=== PATIENT | female | born 1970 | race Caucasian/White ===

== ENCOUNTER 2020-04-05 01:39 | Emergency (ER) | payer MEDICAID, OTHER ==
[~2020-04-05] VITALS: Ht 165.1 cm; Wt 77.3 kg
[2020-04-05] MEDS ORDERED: ondansetron 4mg rapidly disintigrating tab PO ONE (02:00)
[2020-04-05] MEDS ORDERED: acetaminophen 325mg tablet PO ONE (02:00)
[2020-04-05] MEDS ORDERED: ketorolac trometh inj. 60 MG/2 ML VIAL IM ONE (02:00)
[2020-04-05 03:30] LABS: CLARITY,URINE CLEAR (Clear); COLOR,URINE YELLOW (Yellow); GLUCOSE, URINE >=1000 mg/dl (Neg); KETONES,URINE 40 mg/dl (Neg); LEUKOCYTE ESTERASE ,URINE NEGATIVE (Neg); NITRITES, URINE NEGATIVE (Neg); OCCULT BLOOD,URINE NEGATIVE (Neg); PROTEIN,URINE TRACE mg/dl (Neg); UROBILINOGEN,URINE 0.2 E.U/dL (0.2-1.0)
[2020-04-05 03:39] LABS: UA COLLECTION TYPE CLN CATCH MIDSTREAM
[2020-04-05 03:40] LABS: BACTERIA,URINE NONE SEEN /HPF (Neg); RBC,URINE NONE SEEN /HPF (0-2); SQUAMOUS EPITHELIAL CELL,UR FEW /LPF (FEW); WBC,URINE NONE SEEN /HPF (0-4)
[2020-04-05] MEDS ORDERED: ONDA8TAB6 PO (03:47)
[2020-04-05] MEDS ORDERED: HYDR-3965 PO (03:47)
[2020-04-05 04:04] VITALS: BP 142/79
== END 2020-04-05 04:05 | disposition home or self-care (01) ==
LOC: ER 01:40
DX: R07.81 Pleurodynia (principal); R11.2 Nausea with vomiting, unspecified; M54.9 Dorsalgia, unspecified; Z87.442 Personal history of urinary calculi; Z88.5 Allergy status to narcotic agent; Z79.899 Other long term (current) drug therapy
CPT/HCPCS: 71045; 81001; 96372; 99284; J1885

== ENCOUNTER 2020-04-10 18:37 | Inpatient (IN) | payer MEDICAID, OTHER ==
[~2020-04-10] VITALS: Ht 165.1 cm; Wt 76.0 kg
[~2020-04-10 18:37] MED LIST: HYDR-3965 PO; ONDA8TAB6 PO
[2020-04-10] MEDS ORDERED: morphine 4 MG/ML inj SYRINge IV ONE (19:00)
[2020-04-10] MEDS ORDERED: ondansetron/PF 4mg/2ml inj IV ONE (19:00)
[2020-04-10] MEDS ORDERED: iohexol 300mg/ml 100ml inj. ONE (19:04)
[2020-04-10] MEDS ORDERED: fentaNYL/PF 50MCG/1 ML 2ML syringe IV ONE ×2 (19:05→22:10)
[2020-04-10] MEDS ORDERED: normal saline 1000ml 1,000 ML IV ONE (19:35)
[2020-04-10] MEDS ORDERED: HYDROcodone/acetaminophen 10/325mg tab PO ONE (22:10)
[2020-04-10] MEDS ORDERED: metoclopramide 5 mg/ml inj IV ONE (22:10)
[2020-04-10] MEDS ORDERED: apixaban 5mg tablet PO ONE (22:10)
[2020-04-10] MEDS ORDERED: NO HOME MEDS (22:28)
[2020-04-10] MEDS ORDERED: heparin 10,000 units/1 ML INJ IV ONE (22:30)
[2020-04-10 23:21] LABS: ALANINE AMINOTRANSFERASE 88 U/L (12-78); ALBUMIN/GLOBULIN RATIO 0.4 (1.1-1.5); ALKALINE PHOSPHATASE 299 IU/L (46-116); ANION GAP 16 (8-16); ASPARTATE AMINO TRANSFERASE 49 U/L (10-37); BILIRUBIN,TOTAL 0.5 MG/DL (0.1-1.0); BLOOD UREA NITROGEN 7 MG/DL (7-18); BUN/CREATININE RATIO 12.5 (6.6-38.0); CALCIUM 8.1 MG/DL (8.5-10.1); CHLORIDE 100 MMOL/L (99-107); CREATININE 0.56 MG/DL (0.40-0.90); GLUCOSE 257 MG/DL (70-104); POTASSIUM 3.3 MMOL/L (3.5-5.1); SODIUM 135 MMOL/L (135-145); TOTAL PROTEIN 6.8 G/DL (6.4-8.2); eGFR > 90 ML/MIN
[2020-04-10] MEDS: normal saline 1000ml 1,000 ML IV SCH (23:38)
[2020-04-10] MEDS ORDERED: mag hydrox/Alum hydrox/simeth 30ml oral suspension PO PRN (23:40)
[2020-04-10] MEDS ORDERED: magnesium hydroxide 30ml (MOM) UD suspension PO PRN (23:40)
[2020-04-10] MEDS ORDERED: acetaminophen 325mg tablet PO PRN (23:40)
[2020-04-10] MEDS ORDERED: potassium CL 10mEq/100ml bag 100 ML IV PRN ×2 (23:40)
[2020-04-10 23:43] LABS: MEAN CORPUSCULAR VOLUME 75.9 FL (78-98)
[2020-04-10 23:45] LABS: BASOPHILS # (AUTO) 0.1 X10'3 (0-0.2); BASOPHILS % (AUTO) 0.7 % (0-1); EOSINOPHILS # (AUTO) 0.1 X10'3 (0-0.9); EOSINOPHILS % (AUTO) 0.5 % (0-6); HEMOGLOBIN 11.1 g/dl (12.0-16.0); LYMPHOCYTES # (AUTO) 1.7 X10'3 (1.1-4.8); LYMPHOCYTES % (AUTO) 8.6 % (21-51); MEAN CORPUSCULAR HEMOGLOBIN 23.5 PG (27.0-31.0); MEAN CORPUSCULAR HGB CONC 30.9 g/dL (33.0-36.5); MEAN PLATELET VOLUME 7.6 FL (7.4-10.4); MONOCYTES # (AUTO) 2.1 X10'3 (0-0.9); MONOCYTES % (AUTO) 10.9 % (2-12); NEUTROPHILS # (AUTO) 15.4 X10'3 (1.8-7.7); NEUTROPHILS % (AUTO) 79.3 % (42-75); PLATELET COUNT 653 X10'3 (140-440); RED BLOOD COUNT 4.75 X10'6 (4.20-5.60); RED CELL DISTRIBUTION WIDTH 17.2 % (11.5-14.5); WHITE BLOOD COUNT 19.4 X10'3 (4.5-11.0)
[2020-04-10] MEDS ORDERED: naloxone 0.4 mg/ml inj IV PRN (23:45)
[2020-04-10] MEDS ORDERED: CADD PCA waste documentation MC PRN (23:45)
[2020-04-11] MEDS: heparin 25,000 UNIT/250ml bag 250 ML IV SCH ×5 (00:27→22:38)
[2020-04-11] MEDS: HYDROmorphone/NS 1 mg/ml CADD 50 ML IV SCH ×7 (00:51→13:00)
[2020-04-11 01:00] VITALS: BP 141/84
[2020-04-11 02:15] LABS: CLARITY,URINE CLEAR (Clear); COLOR,URINE YELLOW (Yellow); GLUCOSE, URINE 500 mg/dl (Neg); KETONES,URINE >=80 mg/dl (Neg); LEUKOCYTE ESTERASE ,URINE NEGATIVE (Neg); NITRITES, URINE NEGATIVE (Neg); OCCULT BLOOD,URINE MODERATE (Neg); PH,URINE 6.5 (4.8-8.0); PROTEIN,URINE TRACE mg/dl (Neg)
[2020-04-11 02:23] LABS: UA COLLECTION TYPE CLN CATCH MIDSTREAM
[2020-04-11 02:46] LABS: BACTERIA,URINE NONE SEEN /HPF (Neg); MUCUS STRANDS NONE SEEN /LPF (Neg); SQUAMOUS EPITHELIAL CELL,UR FEW /LPF (FEW); WBC,URINE 0-4 /HPF (0-4)
[2020-04-11 04:29] LABS: NUCLEATED RED BLOOD CELLS 1 /100WBC (0-0); PLATELET ESTIMATE INCREASED; TOTAL CELLS COUNTED 100
[2020-04-11 04:30] LABS: ANISOCYTOSIS 1+; LARGE PLATELETS FEW; MICROCYTOSIS 1+
[2020-04-11 06:41] LABS: BASOPHILS # (AUTO) 0.1 X10'3 (0-0.2); BASOPHILS % (AUTO) 0.5 % (0-1); EOSINOPHILS # (AUTO) 0.1 X10'3 (0-0.9); EOSINOPHILS % (AUTO) 0.4 % (0-6); HEMATOCRIT 35.5 % (35.0-45.0); HEMOGLOBIN 11.1 g/dl (12.0-16.0); LYMPHOCYTES # (AUTO) 1.6 X10'3 (1.1-4.8); LYMPHOCYTES % (AUTO) 7.7 % (21-51); MEAN CORPUSCULAR HGB CONC 31.3 g/dL (33.0-36.5); MEAN CORPUSCULAR VOLUME 76.6 FL (78-98); MEAN PLATELET VOLUME 7.5 FL (7.4-10.4); MONOCYTES # (AUTO) 2.2 X10'3 (0-0.9); MONOCYTES % (AUTO) 10.3 % (2-12); NEUTROPHILS # (AUTO) 17.3 X10'3 (1.8-7.7); NEUTROPHILS % (AUTO) 81.1 % (42-75); PLATELET COUNT 677 X10'3 (140-440); RED BLOOD COUNT 4.64 X10'6 (4.20-5.60); RED CELL DISTRIBUTION WIDTH 17.5 % (11.5-14.5); WHITE BLOOD COUNT 21.3 X10'3 (4.5-11.0)
[2020-04-11 06:54] LABS: ALANINE AMINOTRANSFERASE 84 U/L (12-78); ALBUMIN 1.7 G/DL (3.4-5.0); ALBUMIN/GLOBULIN RATIO 0.3 (1.1-1.5); ALKALINE PHOSPHATASE 311 IU/L (46-116); ANION GAP 15 (8-16); ASPARTATE AMINO TRANSFERASE 36 U/L (10-37); BILIRUBIN,TOTAL 0.5 MG/DL (0.1-1.0); BLOOD UREA NITROGEN 7 MG/DL (7-18); BUN/CREATININE RATIO 11.9 (6.6-38.0); CALCIUM 8.6 MG/DL (8.5-10.1); CHLORIDE 100 MMOL/L (99-107); CREATININE 0.59 MG/DL (0.40-0.90); GLUCOSE 276 MG/DL (70-104); POTASSIUM 3.2 MMOL/L (3.5-5.1); SODIUM 133 MMOL/L (135-145); TOTAL CARBON DIOXIDE 17.7 MMOL/L (24-32); TOTAL PROTEIN 7.1 G/DL (6.4-8.2); eGFR > 90 ML/MIN
[2020-04-11 07:00] VITALS: BP 129/73
[2020-04-11] MEDS: heparin 10,000 units/1 ML INJ IV PRN ×3 (07:22→22:35)
[2020-04-11] MEDS: potassium Cl 20 mEq SR tablet PO PRN ×3 (07:28→22:38)
[2020-04-11] MEDS: K and/or MAG REPLACEMENT MC SCH ×2 (07:30→20:00)
[2020-04-11 11:34] VITALS: BP 144/83
[2020-04-11 12:15] VITALS: BP 143/75
[2020-04-11] MEDS ORDERED: haemoph B poly conj-tet tox/PF 10mcg/0.5ml vial IMVAC ONE (12:15)
[2020-04-11] MEDS ORDERED: pneumococcal 23-VAL P-sac vacc 25 mcg/0.5ml vial IMVAC ONE (12:15)
[2020-04-11] MEDS ORDERED: mening vac A,C,Y,W-135 dip/PF 4 mcg/0.5 ml vaccine IMVAC ONE (12:15)
[2020-04-11] MEDS: ondansetron/PF 4mg/2ml inj IV PRN (14:54)
[2020-04-11 15:14] VITALS: BP 133/79
[2020-04-11] MEDS: HYDROcodone/acetaminophen 10/325mg tab PO PRN ×2 (15:36→20:48)
[2020-04-11 15:37] LABS: HEMATOCRIT 34.5 % (35.0-45.0); HEMOGLOBIN 10.7 g/dl (12.0-16.0); MEAN CORPUSCULAR HEMOGLOBIN 23.3 PG (27.0-31.0); MEAN CORPUSCULAR HGB CONC 30.9 g/dL (33.0-36.5); MEAN CORPUSCULAR VOLUME 75.4 FL (78-98); MEAN PLATELET VOLUME 7.3 FL (7.4-10.4); PLATELET COUNT 720 X10'3 (140-440); RED BLOOD COUNT 4.58 X10'6 (4.20-5.60); WHITE BLOOD COUNT 20.8 X10'3 (4.5-11.0)
--- NOTE | 2020-04-11 16:23 | NUR ---
HEP DRIP STOPPED FOR IR EMBOLIZATION
--- NOTE | 2020-04-11 16:30 | NUR ---
PTT 35. PER PROTOCOL 6000 BOLUS WAS TO BE GIVEN. PT WAS TO GO TO IR FOR EMBOLIZATION. I DISCUSSED WITH RADIOLOGY SCHEDULER ESCOBAR WHETHER GIVING A BOLUS WOULD BE APPROPRIATE. WE WERE UNSURE OF TIME OF PROCEDURE, SHE MADE MULTIPLE ATTEMPTS TO CONTACT IR WITH NO SUCCESS. PER RADIOLOGY SCHEDULER, FOLLOWING THE PROTOCOL WAS THE APPROPRIATE ACTION PT HAS A THORACIC THROMBUS. PROTOCOL WAS FOLLOWED.
--- NOTE | 2020-04-11 16:56 | NUR ---
HEP DRIP RESTARTED. PROCEDURE DELAYED UNTIL AM D/T HEP BOLUS.
[2020-04-11 18:00] VITALS: BP 146/74
--- NOTE | 2020-04-11 18:53 | NUR ---
Problems reprioritized. Patient report given, questions answered & plan of care reviewed with PRUDENCE RN.
--- NOTE | 2020-04-11 23:42 | NUR ---
Lab results for PTT was 43 and the patient was given 3000 unit bolus of Heparin and the rate for Heparin drip was increased from 19,000units/hr to 2,100units per hour. Per Dr Bey order, no Heparin bolus after 0400 0n 04/12/20 and to stop the infusion at 0700 on 04/12/20. Patient going in for a procedure at 10 am.
[2020-04-12] VITALS (19 sets, daily range): BP systolic 127–180; BP diastolic 68–88
[2020-04-12] MEDS: HYDROcodone/acetaminophen 10/325mg tab PO PRN ×2 (01:06→16:18)
--- NOTE | 2020-04-12 03:00 | NUR ---
PATIENT STARTED COMPLAINING OF PAIN IN THE ABDOMEN AND UPON ASSESSMENT, THE VITAL SIGNS WERE TEMPERATURE 99.4, HR 134, O2 91, RR 24 AND BP 180/85. O2 ADMINISTERED AT 2L. MD NOTIFIED AND CAME TO ASSESS THE PATIENT. PATIENT SENT FOR CT SCAN AND THE DOCTOR IS EVALUATING THE RESULTS. PER DR VASQUEZ'S ORDER, HEPARIN DRIP STOPPED. PATIENT IS BACK IN THE ROOM AND ZOFRAN ADMINISTERED REQUESTED BY PATIENT.
[2020-04-12] MEDS ORDERED: iohexol 300mg/ml 100ml inj. ONE ×2 (03:15→10:10)
[2020-04-12] MEDS: ondansetron/PF 4mg/2ml inj IV PRN ×3 (03:25→21:24)
[2020-04-12] MEDS: normal saline 1000ml 1,000 ML IV SCH ×4 (04:07→23:40)
[2020-04-12] MEDS: HYDROmorphone inj. 0.5 MG/0.5 ML DISP.SYRIN IV PRN ×3 (04:23→13:32)
[2020-04-12 04:42] LABS: EOSINOPHILS # (AUTO) 0.1 X10'3 (0-0.9); LYMPHOCYTES # (AUTO) 0.7 X10'3 (1.1-4.8); LYMPHOCYTES % (AUTO) 4.5 % (21-51); MEAN PLATELET VOLUME 7.7 FL (7.4-10.4); MONOCYTES # (AUTO) 1.1 X10'3 (0-0.9)
[2020-04-12 04:44] LABS: BASOPHILS % (AUTO) 0.3 % (0-1); EOSINOPHILS % (AUTO) 0.6 % (0-6); HEMATOCRIT 35.3 % (35.0-45.0); MEAN CORPUSCULAR HEMOGLOBIN 23.4 PG (27.0-31.0); MEAN CORPUSCULAR HGB CONC 31.2 g/dL (33.0-36.5); MEAN CORPUSCULAR VOLUME 75.1 FL (78-98); MONOCYTES % (AUTO) 6.7 % (2-12); NEUTROPHILS % (AUTO) 87.9 % (42-75); PLATELET COUNT 642 X10'3 (140-440); RED CELL DISTRIBUTION WIDTH 17.4 % (11.5-14.5); WHITE BLOOD COUNT 15.9 X10'3 (4.5-11.0)
[2020-04-12 04:47] LABS: ALANINE AMINOTRANSFERASE 72 U/L (12-78); ALBUMIN 1.9 G/DL (3.4-5.0); ALBUMIN/GLOBULIN RATIO 0.4 (1.1-1.5); ALKALINE PHOSPHATASE 287 IU/L (46-116); ANION GAP 17 (8-16); ASPARTATE AMINO TRANSFERASE 32 U/L (10-37); BILIRUBIN,TOTAL 0.5 MG/DL (0.1-1.0); BLOOD UREA NITROGEN 5 MG/DL (7-18); BUN/CREATININE RATIO 10.4 (6.6-38.0); CALCIUM 8.2 MG/DL (8.5-10.1); CHLORIDE 99 MMOL/L (99-107); CREATININE 0.48 MG/DL (0.40-0.90); GLUCOSE 297 MG/DL (70-104); POTASSIUM 3.4 MMOL/L (3.5-5.1); SODIUM 134 MMOL/L (135-145); TOTAL CARBON DIOXIDE 18.3 MMOL/L (24-32); eGFR > 90 ML/MIN
--- NOTE | 2020-04-12 05:03 | NUR ---
Called Dr Santizo to ask if the Heparin drip can be turned back on. Heparin drip infusing per protocol.
--- NOTE | 2020-04-12 05:16 | NUR ---
Heparin drip restarted at the same rate at 2,100units per hour. Per Dr Robles's order, no bolus after 0400 and the PTT results were 38 for the morning labs. Will continue to monitor.
--- NOTE | 2020-04-12 06:35 | NUR ---
Problems reprioritized. Patient report given, questions answered & plan of care reviewed with Geena SHAH.
--- NOTE | 2020-04-12 06:39 | NUR ---
Patient in room [facility] 348. I have received report from RUDDY SHAH and had the opportunity to ask questions and assume patient care.
[2020-04-12 07:27] LABS: ANISOCYTOSIS 1+; HYPOCHROMASIA 1+; MICROCYTOSIS 1+; NUCLEATED RED BLOOD CELLS 1 /100WBC (0-0); PLATELET ESTIMATE INCREASED; POLYCHROMASIA 1+; TOTAL CELLS COUNTED 100
[2020-04-12] MEDS: K and/or MAG REPLACEMENT MC SCH ×2 (08:00→12:07)
[2020-04-12] MEDS ORDERED: heparin 1,000 UNITS/NS 500ml 500 ML ONE (10:10)
[2020-04-12] MEDS ORDERED: LIDOcaine 1%/PF 5ML 10 MG/ML VIAL ONE (10:10)
[2020-04-12] MEDS ORDERED: midazolam 2 mg/2 ml injection ONE ×2 (10:45→11:11)
[2020-04-12] MEDS ORDERED: fentaNYL/PF 50MCG/1 ML 2ML syringe ONE ×3 (10:45→12:09)
[2020-04-12] MEDS ORDERED: ondansetron/PF 4mg/2ml inj ONE (11:11)
[2020-04-12] MEDS ORDERED: heparin 1,000unit/ml 10ml vial 10 ML ONE (11:55)
--- NOTE | 2020-04-12 12:00 | NUR ---
patient transferred for surg prep PAS unit .
--- NOTE | 2020-04-12 12:49 | NUR ---
pre-op check list done. Patient ready for procedure. Report given to Angio RN sherry. One bag of IV K administered for K 3.4 tolerated 60 mls of it c/o burning in IV site prior to milk pickup driver to Angio.
[2020-04-12 13:48] LABS: PARTIAL THROMBOPLASTIN TIME 30 SECONDS (22-32)
[2020-04-12] MEDS: heparin 10,000 units/1 ML INJ IV PRN (14:13)
--- NOTE | 2020-04-12 14:20 | NUR ---
Received pt from IR at 1300
[2020-04-12] MEDS ORDERED: HYDROcodone/acetaminophen 5mg/325mg tablet PO PRN (14:55)
[2020-04-12 15:34] LABS: HEMOGLOBIN A1C 12.3 % (4.5-6.2)
[2020-04-12] MEDS: heparin 25,000 UNIT/250ml bag 250 ML IV SCH (15:44)
[2020-04-12 16:49] LABS: HEMATOCRIT 31.4 % (35.0-45.0); HEMOGLOBIN 9.8 g/dl (12.0-16.0); MEAN CORPUSCULAR HEMOGLOBIN 23.5 PG (27.0-31.0); MEAN CORPUSCULAR HGB CONC 31.3 g/dL (33.0-36.5); MEAN CORPUSCULAR VOLUME 75.3 FL (78-98); MEAN PLATELET VOLUME 7.3 FL (7.4-10.4); PLATELET COUNT 690 X10'3 (140-440); RED BLOOD COUNT 4.17 X10'6 (4.20-5.60); RED CELL DISTRIBUTION WIDTH 17.7 % (11.5-14.5); WHITE BLOOD COUNT 19.8 X10'3 (4.5-11.0)
[2020-04-12] MEDS ORDERED: dextrose ORAL solution 15 GM/59 ML bottle PO PRN ×2 (17:30)
[2020-04-12] MEDS ORDERED: glucagon, human recombinant 1mg kit SUBCUT PRN (17:30)
[2020-04-12] MEDS ORDERED: dextrose 50%-water 50ml dispensing syringe IV PRN ×2 (17:30)
[2020-04-12] MEDS ORDERED: MESSAGE TO PHARMACY PO ONE (17:30)
[2020-04-12] MEDS: insulin Lispro (HumaLOG) vial - multi-dose SQ SCH ×2 (20:05→20:59)
[2020-04-12] MEDS: insulin glargine (Lantus) pen - multi-dose SQ SCH (20:58)
[2020-04-12 21:36] LABS: HEMOGLOBIN 10.4 g/dl (12.0-16.0); MEAN PLATELET VOLUME 7.2 FL (7.4-10.4); WHITE BLOOD COUNT 16.7 X10'3 (4.5-11.0)
[2020-04-12 21:38] LABS: HEMATOCRIT 32.7 % (35.0-45.0); MEAN CORPUSCULAR HEMOGLOBIN 23.7 PG (27.0-31.0); MEAN CORPUSCULAR HGB CONC 31.7 g/dL (33.0-36.5); MEAN CORPUSCULAR VOLUME 74.8 FL (78-98); PLATELET COUNT 701 X10'3 (140-440); RED BLOOD COUNT 4.38 X10'6 (4.20-5.60); RED CELL DISTRIBUTION WIDTH 17.2 % (11.5-14.5)
[2020-04-12 22:32] LABS: ALANINE AMINOTRANSFERASE 73 U/L (12-78); ALBUMIN/GLOBULIN RATIO 0.4 (1.1-1.5); ALKALINE PHOSPHATASE 291 IU/L (46-116); ANION GAP 12 (8-16); ASPARTATE AMINO TRANSFERASE 39 U/L (10-37); BILIRUBIN,TOTAL 0.3 MG/DL (0.1-1.0); BLOOD UREA NITROGEN 3 MG/DL (7-18); BUN/CREATININE RATIO 4.5 (6.6-38.0); CALCIUM 8.4 MG/DL (8.5-10.1); CHLORIDE 99 MMOL/L (99-107); CREATININE 0.66 MG/DL (0.40-0.90); GLUCOSE 263 MG/DL (70-104); SODIUM 133 MMOL/L (135-145); TOTAL CARBON DIOXIDE 21.7 MMOL/L (24-32); TOTAL PROTEIN 7.1 G/DL (6.4-8.2); eGFR > 90 ML/MIN
[2020-04-12 22:36] LABS: PARTIAL THROMBOPLASTIN TIME 83 SECONDS (22-32); POTASSIUM 2.9 MMOL/L (3.5-5.1)
[2020-04-12] MEDS: potassium Cl 20 mEq SR tablet PO PRN (22:53)
[2020-04-13] VITALS (25 sets, daily range): BP systolic 109–158; BP diastolic 56–85
[2020-04-13] MEDS: ondansetron/PF 4mg/2ml inj IV PRN (03:57)
[2020-04-13] MEDS: potassium Cl 20 mEq SR tablet PO PRN ×4 (03:58→19:59)
[2020-04-13 05:02] LABS: EOSINOPHILS # (AUTO) 0.1 X10'3 (0-0.9); EOSINOPHILS % (AUTO) 0.6 % (0-6); MEAN CORPUSCULAR VOLUME 75.1 FL (78-98); MONOCYTES # (AUTO) 3.4 X10'3 (0-0.9)
[2020-04-13 05:05] LABS: BASOPHILS # (AUTO) 0.1 X10'3 (0-0.2); BASOPHILS % (AUTO) 0.6 % (0-1); HEMATOCRIT 29.9 % (35.0-45.0); HEMOGLOBIN 9.5 g/dl (12.0-16.0); LYMPHOCYTES % (AUTO) 9.3 % (21-51); MEAN CORPUSCULAR HEMOGLOBIN 23.8 PG (27.0-31.0); MEAN CORPUSCULAR HGB CONC 31.7 g/dL (33.0-36.5); MEAN PLATELET VOLUME 7.5 FL (7.4-10.4); MONOCYTES % (AUTO) 15.7 % (2-12); NEUTROPHILS % (AUTO) 73.8 % (42-75); PLATELET COUNT 633 X10'3 (140-440); RED BLOOD COUNT 3.99 X10'6 (4.20-5.60); RED CELL DISTRIBUTION WIDTH 17.5 % (11.5-14.5); WHITE BLOOD COUNT 21.7 X10'3 (4.5-11.0)
[2020-04-13 05:21] LABS: PARTIAL THROMBOPLASTIN TIME 68 SECONDS (22-32)
[2020-04-13] MEDS: heparin 25,000 UNIT/250ml bag 250 ML IV SCH (05:25)
[2020-04-13 05:29] LABS: ALANINE AMINOTRANSFERASE 63 U/L (12-78); ALBUMIN 1.7 G/DL (3.4-5.0); ALBUMIN/GLOBULIN RATIO 0.4 (1.1-1.5); ALKALINE PHOSPHATASE 257 IU/L (46-116); ANION GAP 11 (8-16); ASPARTATE AMINO TRANSFERASE 37 U/L (10-37); BILIRUBIN,TOTAL 0.4 MG/DL (0.1-1.0); BLOOD UREA NITROGEN 2 MG/DL (7-18); BUN/CREATININE RATIO 4.3 (6.6-38.0); CALCIUM 8.1 MG/DL (8.5-10.1); CHLORIDE 100 MMOL/L (99-107); CREATININE 0.46 MG/DL (0.40-0.90); GLUCOSE 249 MG/DL (70-104); POTASSIUM 3.2 MMOL/L (3.5-5.1); SODIUM 133 MMOL/L (135-145); TOTAL CARBON DIOXIDE 21.8 MMOL/L (24-32); eGFR > 90 ML/MIN
[2020-04-13 06:26] LABS: ANISOCYTOSIS 1+; LARGE PLATELETS FEW; MICROCYTOSIS 1+; PLATELET ESTIMATE INCREASED; TOTAL CELLS COUNTED 100
--- NOTE | 2020-04-13 06:27 | NUR ---
report and care transfered to Art RN
[2020-04-13] MEDS: K and/or MAG REPLACEMENT MC SCH ×2 (08:01→20:42)
[2020-04-13] MEDS: HYDROcodone/acetaminophen 10/325mg tab PO PRN ×3 (08:01→20:00)
[2020-04-13] MEDS: insulin Lispro (HumaLOG) vial - multi-dose SQ SCH ×4 (08:39→22:37)
[2020-04-13] MEDS: normal saline 1000ml 1,000 ML IV SCH ×2 (09:16→19:15)
[2020-04-13 11:39] LABS: MEAN PLATELET VOLUME 7.4 FL (7.4-10.4)
[2020-04-13 11:43] LABS: HEMATOCRIT 30.5 % (35.0-45.0); HEMOGLOBIN 9.6 g/dl (12.0-16.0); MEAN CORPUSCULAR HEMOGLOBIN 23.5 PG (27.0-31.0); MEAN CORPUSCULAR HGB CONC 31.5 g/dL (33.0-36.5); MEAN CORPUSCULAR VOLUME 74.5 FL (78-98); PLATELET COUNT 764 X10'3 (140-440); RED BLOOD COUNT 4.09 X10'6 (4.20-5.60); RED CELL DISTRIBUTION WIDTH 17.2 % (11.5-14.5); WHITE BLOOD COUNT 24.4 X10'3 (4.5-11.0)
--- NOTE | 2020-04-13 12:38 | NUR ---
DM Consult: Pt admit w/ grade 4 splenic laceration s/p fall 7 days ago per MD. 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 A1C 12.3 and no hx DM; new DX per RN. RN reports pt is aware and has questions regarding diet at this time. Pt sleeping during RD visit this AM; written DM ed, RD contact information, new DM pamphlet, and new DM booklet left at pt bedside. Will need significant reinforcement prior to discharge. RN reports no plans to discharge today. PO 0-25% first 3 clear liquid meals advancing to full liquids today per RN. LBM 04/10. Will monitor for PO diet advancement, tolerance, and appropriateness for DM ed reinforcement. Rec: 1. advance diet as medically indicated to carb controlled 2. monitor for ONS needs 3. bowel care as needed 4. weekly wts 5. new DM DX diet ed reinforcement prior to discharge Addendum: 04/13/20 at [address] Amended: Links added.
[2020-04-13] MEDS: apixaban 5mg tablet PO SCH (17:44)
[2020-04-13] MEDS ORDERED: apixaban 5mg tablet PO SCH (20:00)
[2020-04-13] MEDS: insulin glargine (Lantus) pen - multi-dose SQ SCH (20:55)
[2020-04-14] VITALS (15 sets, daily range): BP systolic 120–167; BP diastolic 71–87
[2020-04-14] MEDS: HYDROcodone/acetaminophen 10/325mg tab PO PRN ×4 (01:51→18:51)
[2020-04-14] MEDS: normal saline 1000ml 1,000 ML IV SCH ×2 (05:15→08:47)
[2020-04-14 05:23] LABS: PARTIAL THROMBOPLASTIN TIME 30 SECONDS (22-32)
[2020-04-14 05:35] LABS: BASOPHILS # (AUTO) 0.1 X10'3 (0-0.2); EOSINOPHILS # (AUTO) 0.1 X10'3 (0-0.9); HEMOGLOBIN 9.7 g/dl (12.0-16.0); MEAN CORPUSCULAR VOLUME 75.1 FL (78-98); NEUTROPHILS # (AUTO) 14.3 X10'3 (1.8-7.7); WHITE BLOOD COUNT 18.7 X10'3 (4.5-11.0)
[2020-04-14 05:36] LABS: ALANINE AMINOTRANSFERASE 62 U/L (12-78); ALBUMIN 1.7 G/DL (3.4-5.0); ALBUMIN/GLOBULIN RATIO 0.4 (1.1-1.5); ALKALINE PHOSPHATASE 245 IU/L (46-116); ANION GAP 9 (8-16); ASPARTATE AMINO TRANSFERASE 30 U/L (10-37); BASOPHILS % (AUTO) 0.3 % (0-1); BILIRUBIN,TOTAL 0.3 MG/DL (0.1-1.0); BLOOD UREA NITROGEN 3 MG/DL (7-18); BUN/CREATININE RATIO 5.7 (6.6-38.0); CALCIUM 8.3 MG/DL (8.5-10.1); CHLORIDE 102 MMOL/L (99-107); CREATININE 0.53 MG/DL (0.40-0.90); EOSINOPHILS % (AUTO) 0.8 % (0-6); GLUCOSE 183 MG/DL (70-104); HEMATOCRIT 30.4 % (35.0-45.0); LYMPHOCYTES # (AUTO) 1.5 X10'3 (1.1-4.8); LYMPHOCYTES % (AUTO) 8.2 % (21-51); MEAN PLATELET VOLUME 7.4 FL (7.4-10.4); MONOCYTES # (AUTO) 2.6 X10'3 (0-0.9); MONOCYTES % (AUTO) 14.1 % (2-12); NEUTROPHILS % (AUTO) 76.6 % (42-75); PLATELET COUNT 652 X10'3 (140-440); POTASSIUM 3.1 MMOL/L (3.5-5.1); RED BLOOD COUNT 4.05 X10'6 (4.20-5.60); RED CELL DISTRIBUTION WIDTH 17.2 % (11.5-14.5); SODIUM 137 MMOL/L (135-145); TOTAL CARBON DIOXIDE 26.2 MMOL/L (24-32); TOTAL PROTEIN 6.2 G/DL (6.4-8.2); eGFR > 90 ML/MIN
--- NOTE | 2020-04-14 06:30 | NUR ---
Patient in room ICU 2045. I have received report from Elmo SHAH and had the opportunity to ask questions and assume patient care.
[2020-04-14] MEDS: K and/or MAG REPLACEMENT MC SCH ×2 (06:47→20:00)
[2020-04-14] MEDS: apixaban 5mg tablet PO SCH ×3 (07:00→19:15)
[2020-04-14] MEDS ORDERED: magnesium Cl slow-release 64mg tablet PO PRN (07:20)
[2020-04-14] MEDS ORDERED: magnesium 4gm in 100ml NS 100 ML IV PRN (07:20)
[2020-04-14] MEDS ORDERED: potassium Cl 20 mEq SR tablet PO PRN (07:20)
[2020-04-14] MEDS ORDERED: potassium CL 10mEq/100ml bag 100 ML IV PRN (07:20)
[2020-04-14 07:26] LABS: ANISOCYTOSIS 1+; MICROCYTOSIS 1+; NUCLEATED RED BLOOD CELLS 1 /100WBC (0-0); PLATELET ESTIMATE INCREASED; TOTAL CELLS COUNTED 100
[2020-04-14 07:27] LABS: GIANT PLATELET FEW; LARGE PLATELETS FEW
[2020-04-14 07:29] LABS: HYPOCHROMASIA 1+; POLYCHROMASIA FEW
[2020-04-14] MEDS: potassium Cl 20 mEq SR tablet PO PRN ×3 (08:40→19:15)
[2020-04-14] MEDS: insulin Lispro (HumaLOG) vial - multi-dose SQ SCH ×4 (08:44→21:05)
[2020-04-14 11:21] LABS: PARTIAL THROMBOPLASTIN TIME 32 SECONDS (22-32)
[2020-04-14] MEDS: ondansetron/PF 4mg/2ml inj IV PRN ×2 (11:21→18:51)
--- NOTE | 2020-04-14 12:43 | NUR ---
F/u(04/14): Pt seen by NGUYEN for extensive verbal DM diet ed for new DM DX. PT reports bakes frequently and follows "keto" recipes normally. RD discouraged following ketogenic diet and educated pt on complications w/ DM. RD reviewed types of carbs, carb sources, hydration needs, optimal protein sources, snack options, carb counting, importance of routine Glu checks and taking medications per Rx. RD also reviewed signs of hypo/hyperglycemia. NGUYEN encouraged pt to request dietitian this admit if further questions and contact dietitian's office if further questions/concerns. Pt very involved in self-care and proactive and ensured RD will ask if further concerns. Addendum: 04/14/20 at [address] Amended: Links added.
--- NOTE | 2020-04-14 14:30 | NUR ---
Pt. and daughter given extensive verbal education on s/sx hypoglycemia, hyperglycemia, and possible treatments of both. Pt. refused written handout stating she already had one. Would like to have a glucometer on discharge.
--- NOTE | 2020-04-14 15:18 | NUR ---
Spoke to MD Mcdonough regarding plan of care. plans to possibly discharge pt home tomorrow. Pt. refuses any home health service however does not have PCP. Visits Urgent care at times. States case management is helping her with insurance and PCP. Pt. states she has no insurance as well. Called [facility] left a voicemail to return this RN phone call.
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
--- NOTE | 2020-04-14 18:36 | NUR ---
Gave report to Johanna Mays RN.
[2020-04-14] MEDS: insulin glargine (Lantus) pen - multi-dose SQ SCH (21:06)
[2020-04-15] VITALS: BP 135/73
[2020-04-15] MEDS: HYDROcodone/acetaminophen 10/325mg tab PO PRN ×3 (00:24→09:45)
[2020-04-15 06:18] LABS: MEAN PLATELET VOLUME 7.3 FL (7.4-10.4); WHITE BLOOD COUNT 19.8 X10'3 (4.5-11.0)
[2020-04-15 06:21] LABS: BASOPHILS # (AUTO) 0.1 X10'3 (0-0.2); BASOPHILS % (AUTO) 0.5 % (0-1); EOSINOPHILS # (AUTO) 0.1 X10'3 (0-0.9); EOSINOPHILS % (AUTO) 0.6 % (0-6); HEMATOCRIT 29.5 % (35.0-45.0); HEMOGLOBIN 9.4 g/dl (12.0-16.0); LYMPHOCYTES # (AUTO) 1.5 X10'3 (1.1-4.8); LYMPHOCYTES % (AUTO) 7.7 % (21-51); MEAN CORPUSCULAR HEMOGLOBIN 23.8 PG (27.0-31.0); MEAN CORPUSCULAR HGB CONC 31.9 g/dL (33.0-36.5); MEAN CORPUSCULAR VOLUME 74.6 FL (78-98); MONOCYTES # (AUTO) 2.9 X10'3 (0-0.9); MONOCYTES % (AUTO) 14.6 % (2-12); NEUTROPHILS # (AUTO) 15.1 X10'3 (1.8-7.7); NEUTROPHILS % (AUTO) 76.6 % (42-75); PLATELET COUNT 704 X10'3 (140-440); RED BLOOD COUNT 3.95 X10'6 (4.20-5.60); RED CELL DISTRIBUTION WIDTH 17.5 % (11.5-14.5)
[2020-04-15 06:25] LABS: ALANINE AMINOTRANSFERASE 50 U/L (12-78); ALBUMIN 1.7 G/DL (3.4-5.0); ALBUMIN/GLOBULIN RATIO 0.4 (1.1-1.5); ALKALINE PHOSPHATASE 233 IU/L (46-116); ANION GAP 8 (8-16); ASPARTATE AMINO TRANSFERASE 21 U/L (10-37); BILIRUBIN,TOTAL 0.2 MG/DL (0.1-1.0); BLOOD UREA NITROGEN 3 MG/DL (7-18); BUN/CREATININE RATIO 6.1 (6.6-38.0); CALCIUM 7.8 MG/DL (8.5-10.1); CHLORIDE 99 MMOL/L (99-107); CREATININE 0.49 MG/DL (0.40-0.90); GLUCOSE 190 MG/DL (70-104); POTASSIUM 3.2 MMOL/L (3.5-5.1); SODIUM 135 MMOL/L (135-145); TOTAL CARBON DIOXIDE 27.8 MMOL/L (24-32); TOTAL PROTEIN 6.2 G/DL (6.4-8.2); eGFR > 90 ML/MIN
--- NOTE | 2020-04-15 06:32 | NUR ---
Problems reprioritized. Patient report given, questions answered & plan of care reviewed with ALYSSA Spencer.
[2020-04-15] MEDS: apixaban 5mg tablet PO SCH ×2 (07:17→19:33)
[2020-04-15] MEDS: potassium Cl 20 mEq SR tablet PO PRN ×3 (07:17→19:32)
[2020-04-15] MEDS: ondansetron/PF 4mg/2ml inj IV PRN (07:22)
[2020-04-15 07:32] LABS: ANISOCYTOSIS 1+; LARGE PLATELETS FEW; MICROCYTOSIS 1+; PLATELET ESTIMATE INCREASED; TOTAL CELLS COUNTED 100
[2020-04-15] MEDS: K and/or MAG REPLACEMENT MC SCH ×2 (08:00→20:00)
[2020-04-15 08:44] VITALS: BP 134/84
[2020-04-15] MEDS: insulin Lispro (HumaLOG) vial - multi-dose SQ SCH ×2 (09:39→13:33)
[2020-04-15] MEDS: glipizide 5mg tablet PO SCH (11:44)
[2020-04-15 12:06] VITALS: BP 123/74
[2020-04-15 12:56] LABS: % IRON SATURATION 6 % (11-46); IRON 9 UG/DL (49-151); TOTAL IRON BINDING CAPACITY 140 UG/DL (259-388)
[2020-04-15] MEDS: HYDROcodone/acetaminophen 5mg/325mg tablet PO PRN ×3 (13:38→23:36)
--- NOTE | 2020-04-15 18:02 | NUR ---
patient seen by Dr ramirez, advised to learn accuchecks and self administration of insulin patient stated she was reluctant to do this. patient agreed to try glipzide whilst here with insulin but did not want to administer own insulin shot . patient showered and ambulated with PT. medicated for pain x2. Report given to francisca jaime
--- NOTE | 2020-04-15 18:39 | NUR ---
Patient in room [facility] 345. I have received report from Geena SHAH and had the opportunity to ask questions and assume patient care.
[2020-04-15 20:00] VITALS: BP 139/87
[2020-04-15] MEDS: insulin glargine (Lantus) pen - multi-dose SQ SCH (21:44)
[2020-04-15 23:59] VITALS: BP 137/79
[2020-04-16] MEDS: HYDROcodone/acetaminophen 5mg/325mg tablet PO PRN (05:44)
--- NOTE | 2020-04-16 06:40 | NUR ---
Patient in room [facility] 345. I have received report from Jennifer SHAH and had the opportunity to ask questions and assume patient care.
--- NOTE | 2020-04-16 06:44 | NUR ---
Problems reprioritized. Patient report given, questions answered & plan of care reviewed with Jennifer SHAH.
[2020-04-16 07:00] VITALS: BP 134/85
[2020-04-16] MEDS: apixaban 5mg tablet PO SCH ×2 (07:54→20:59)
[2020-04-16] MEDS: glipizide 5mg tablet PO SCH (07:54)
[2020-04-16] MEDS: K and/or MAG REPLACEMENT MC SCH ×2 (08:00→19:10)
[2020-04-16 08:36] LABS: MAGNESIUM 1.9 MG/DL (1.5-2.4); POTASSIUM 3.5 MMOL/L (3.5-5.1)
[2020-04-16] MEDS ORDERED: methylnaltrexone br 12mg/0.6ml inj***SubQ only SQ ONE (09:00)
[2020-04-16] MEDS ORDERED: lactulose 20gm/30ml cup PO PRN (10:00)
[2020-04-16] MEDS: acetaminophen 325mg tablet PO PRN ×3 (10:25→23:06)
[2020-04-16 11:00] VITALS: BP 125/77
--- NOTE | 2020-04-16 17:34 | NUR ---
DM consult: Pt already seen by RD for extensive written and verbal DM education, see below. Received TC from RN today stating pt is requesting additional specific information regarding nutrient intake. RN states she provided pt with information including increasing whole grains and protein and limiting fat intake. Attempted visit with pt at bedside to f/u on requested information however pt sleeping and did not wake with verbal cues. RD contact information left at bedside so pt could reach out for additional questions. Per MD note pt refusing to give herself insulin. RN reports pt was started on an oral DM medication however pt refusing to take her BG levels at this time and states pt is reporting she will have her daughter help her. Patient's diet has been advanced to carb controlled however pt averaging 25% PO intake not meeting nutrient needs. Will f/u for food preferences at another time since pt sleeping during attempted visit. LBM 04/13. Pt receiving PRN bowel care and PRN Lactulose added to med list today. Will continue to follow closely. F/u(04/14): Pt seen by RD for extensive verbal DM diet ed for new DM DX. PT reports bakes frequently and follows "keto" recipes normally. RD discouraged following ketogenic diet and educated pt on complications w/ DM. RD reviewed types of carbs, carb sources, hydration needs, optimal protein sources, snack options, carb counting, importance of routine Glu checks and taking medications per Rx. RD also reviewed signs of hypo/hyperglycemia. RD encouraged pt to request dietitian this admit if further questions and contact dietitian's office if further questions/concerns. Pt very involved in self-care and proactive and ensured RD will ask if further concerns. Rec: 1. continue carb controlled diet; encourage PO intake 2. monitor for ONS needs 3. bowel care as needed 4. weekly scaled wts Addendum: 04/16/20 at [address] Amended: Links added.
--- NOTE | 2020-04-16 18:22 | NUR ---
Problems reprioritized. Patient report given, questions answered & plan of care reviewed with Skyla SHAH.
--- NOTE | 2020-04-16 18:44 | NUR ---
Patient in room [facility] 345. I have received report from ALYSSA Rodriguez and had the opportunity to ask questions and assume patient care.
[2020-04-16 19:00] VITALS: BP 130/85
[2020-04-17 00:28] VITALS: BP 163/90
[2020-04-17 00:54] VITALS: BP 135/76
[2020-04-17] MEDS: HYDROcodone/acetaminophen 5mg/325mg tablet PO PRN (05:40)
--- NOTE | 2020-04-17 06:38 | NUR ---
Problems reprioritized. Patient report given, questions answered & plan of care reviewed with ALYSSA Russell and ALYSSA Matute.
--- NOTE | 2020-04-17 06:39 | NUR ---
Patient in room [facility] 345. I have received report from Skyla SHAH and had the opportunity to ask questions and assume patient care.
[2020-04-17 07:21] VITALS: BP 142/86
[2020-04-17] MEDS: glipizide 5mg tablet PO SCH (07:49)
[2020-04-17] MEDS: apixaban 5mg tablet PO SCH (07:49)
[2020-04-17] MEDS: K and/or MAG REPLACEMENT MC SCH (07:49)
[2020-04-17] MEDS ORDERED: glipizide 5mg tablet PO ONE (09:35)
[2020-04-17] MEDS ORDERED: traMADol 50MG tablet PO PRN (09:35)
[2020-04-17 12:00] VITALS: BP 148/81
--- NOTE | 2020-04-17 12:31 | NUR ---
Pt reports vision felt blurry, addressed with MD with no new orders received.
[2020-04-17] MEDS ORDERED: APIX5TAB3 PO (12:48)
[2020-04-17] MEDS ORDERED: GLIP5TAB13 PO (12:48)
[2020-04-17] MEDS ORDERED: TRAM50TA2 PO (12:48)
--- NOTE | 2020-04-17 15:30 | NUR ---
Pt stable and appropriate for d/c. Left upper arm and left anticubital PIVs d/c'd, cannulas intact. Patient and family present:Education given, especially regarding diabetes type 2 care and instruction, reviewed d/c instructions and meds with d/c meds called into [facility]. All personal belongings home with patient. Patient down to lobby via w/c accompanied by tech and family. Home via personal vehicle.
--- NOTE | 2020-04-17 15:38 | NUR ---
Received TC from dietary stating pt has been expressing some concerns regarding PO intake since new dx of diabetes. Attempted visit with pt at bedside however pt sleeping and did not wake with verbal cues however patient's daughter at bedside with multiple questions regarding diabetes management. Further extensive diabetes nutrition therapy education provided by NGUYEN. Daughter states pt is fearful of eating because she doesn't want her BG levels to be high and pt is wanting to do the keto diet. RD encouraged PO intake and discouraged following the keto diet and reviewed more appropriate alternative lifestyle diets, such as the Mediterranean diet. Daughter reports pt usually will drink energy drinks and soda and not eat throughout the day then binge eat in the evening. Daughter reports pt likely would be unwilling to try diet sodas however would consider eliminating energy drinks and soda altogether. RD reviewed proper meal times and encouraged consistent carb and protein intake as well as reviewed the role of exercise, the rule of 15's with a low blood sugar, and provided online resources for diabetes management. Daughter very passionate about encouraging pt to manage her diabetes and reports she is planning on keeping a log of reflecting BG levels after PO intake. Daughter reports she is currently working on the paperwork for pt to establish a PCP and an stonemason supervisor. All of daughter's questions were answered at this time. RD encouraged pt/daughter to further discuss questions/concerns with MD and again provided RD contact information. Pt pending discharge at this time. Will remain available. Addendum: 04/17/20 at [address] Amended: Links added.
[2020-04-18] MEDS ORDERED: glipizide 5mg tablet PO SCH (07:30)
== END 2020-04-17 15:45 | disposition home or self-care (01) | DRG 950 ==
LOC: ER 18:38 → ED HOLD 23:38 → SUR 3N 04-11 00:33 → ICU 2S 04-12 12:57 → SUR 3N 04-14 12:54
PROVIDERS: ADMIT Internal Medicine
PROC: BW211ZZ Computerized Tomography (CT Scan) of Abdomen and Pelvis using Low Osmolar Contrast (ICD-10-PCS; 2020-04-10)
PROC: 3E0234Z Introduction of Serum, Toxoid and Vaccine into Muscle, Percutaneous Approach (ICD-10-PCS; 2020-04-11)
PROC: BW201ZZ Computerized Tomography (CT Scan) of Abdomen using Low Osmolar Contrast (ICD-10-PCS; 2020-04-12)
PROC: 04L Lower Arteries, Occlusion (ICD-10-PCS; principal; 2020-04-13)
PROC: B4131ZZ Fluoroscopy of Splenic Arteries using Low Osmolar Contrast (ICD-10-PCS; 2020-04-13)
DX: S36.032A Major laceration of spleen, initial encounter (principal); I74.11 Embolism and thrombosis of thoracic aorta; I51.3 Intracardiac thrombosis, not elsewhere classified; E11.65 Type 2 diabetes mellitus with hyperglycemia; W18.2XXA Fall in (into) shower or empty bathtub, initial encounter; R74.0 Nonspecific elevation of levels of transaminase and lactic acid dehydrogenase [LDH]; D25.9 Leiomyoma of uterus, unspecified; J45.909 Unspecified asthma, uncomplicated; Z79.01 Long term (current) use of anticoagulants; Z79.84 Long term (current) use of oral hypoglycemic drugs; Z88.5 Allergy status to narcotic agent; Z87.442 Personal history of urinary calculi; Y93.89 Activity, other specified; Y92.89 Other specified places as the place of occurrence of the external cause; Y99.8 Other external cause status; Z98.51 Tubal ligation status
CPT/HCPCS: 36415; 37242; 74160; 74177; 76937; 80053; 81001; 82948; 83036; 83540; 83550; 83735; 84132; 85025; 85027; 85730; 86885; 86900; 86901; 87081; 90648; 90732; 97161; 97530; 99152; 99153; 99285; A6213; C1760; C1769; C1894; G0378; J1170; J1644; J1815; J2250; J2405; J2765; J3010; J3480; J7030; Q9967

== ENCOUNTER 2021-01-12 17:23 | Emergency (ER) | payer BC, MEDICAID ==
[~2021-01-12] VITALS: Ht 152.4 cm; Wt 72.6 kg
[~2021-01-12 17:23] MED LIST changes: +APIX5TAB3 PO; +GLIP5TAB13 PO; -HYDR-3965 PO; +NO HOME MEDS; -ONDA8TAB6 PO; +TRAM50TA2 PO
[2021-01-12 17:39] VITALS: BP 128/78
--- NOTE | 2021-01-12 17:49 | NUR ---
Patient given an apple juice and a sandwich, patients friend its with her in the lobby.
[2021-01-12 19:19] LABS: BASOPHILS % (AUTO) 0.4 % (0-1); EOSINOPHILS # (AUTO) 0.1 X10'3 (0-0.9); HEMATOCRIT 42.6 % (35.0-45.0); HEMOGLOBIN 13.8 g/dl (12.0-16.0); LYMPHOCYTES # (AUTO) 2.7 X10'3 (1.1-4.8); LYMPHOCYTES % (AUTO) 23.8 % (21-51); MEAN CORPUSCULAR HEMOGLOBIN 27.3 PG (27.0-31.0); MEAN CORPUSCULAR HGB CONC 32.3 g/dL (33.0-36.5); MEAN CORPUSCULAR VOLUME 84.4 FL (78-98); MEAN PLATELET VOLUME 7.8 FL (7.4-10.4); MONOCYTES % (AUTO) 8.8 % (2-12); NEUTROPHILS # (AUTO) 7.4 X10'3 (1.8-7.7); PLATELET COUNT 571 X10'3 (140-440); RED BLOOD COUNT 5.05 X10'6 (4.20-5.60); RED CELL DISTRIBUTION WIDTH 17.3 % (11.5-14.5); WHITE BLOOD COUNT 11.2 X10'3 (4.5-11.0)
[2021-01-12 19:33] LABS: ALANINE AMINOTRANSFERASE 40 U/L (12-78); ALBUMIN 3.8 G/DL (3.4-5.0); ALBUMIN/GLOBULIN RATIO 0.9 (1.1-1.5); ALKALINE PHOSPHATASE 129 IU/L (46-116); ANION GAP 13 (8-16); ASPARTATE AMINO TRANSFERASE 20 U/L (10-37); BILIRUBIN,TOTAL 0.3 MG/DL (0.1-1.0); BLOOD UREA NITROGEN 18 MG/DL (7-18); BUN/CREATININE RATIO 29.5 (6.6-38.0); CALCIUM 9.3 MG/DL (8.5-10.1); CHLORIDE 102 MMOL/L (99-107); CREATININE 0.61 MG/DL (0.40-0.90); GLUCOSE 143 MG/DL (70-104); LIPASE 140 U/L (73-393); POTASSIUM 3.6 MMOL/L (3.5-5.1); SODIUM 139 MMOL/L (135-145); TOTAL CARBON DIOXIDE 23.7 MMOL/L (24-32); TOTAL PROTEIN 8.2 G/DL (6.4-8.2); eGFR > 90 ML/MIN
[2021-01-12 19:34] LABS: CLARITY,URINE SLIGHTLY CLOUDY (Clear); COLOR,URINE YELLOW (Yellow); GLUCOSE, URINE >=1000 mg/dl (Neg); KETONES,URINE 15 mg/dl (Neg); LEUKOCYTE ESTERASE ,URINE NEGATIVE (Neg); NITRITES, URINE NEGATIVE (Neg); OCCULT BLOOD,URINE NEGATIVE (Neg); PROTEIN,URINE NEGATIVE (Neg); UROBILINOGEN,URINE 0.2 E.U/dL (0.2-1.0)
[2021-01-12 19:44] LABS: UA COLLECTION TYPE CLN CATCH MIDSTREAM
[2021-01-12 19:47] LABS: BACTERIA,URINE FEW /HPF (Neg); MUCUS STRANDS NONE SEEN /LPF (Neg); RBC,URINE NONE SEEN /HPF (0-2); SQUAMOUS EPITHELIAL CELL,UR MODERATE /LPF (FEW); WBC,URINE NONE SEEN /HPF (0-4); YEAST FEW /HPF (NEGATIVE)
== END 2021-01-12 20:13 | disposition home or self-care (01) ==
LOC: ER 17:24
DX: E11.8 Type 2 diabetes mellitus with unspecified complications (principal); R53.83 Other fatigue; G43.909 Migraine, unspecified, not intractable, without status migrainosus; Z87.42 Personal history of other diseases of the female genital tract; Z88.5 Allergy status to narcotic agent; Z79.899 Other long term (current) drug therapy
CPT/HCPCS: 36415; 80053; 81001; 82948; 83690; 85025; 87088; 99283